=== PATIENT | male | born 1985 | race African-American/Black ===

== ENCOUNTER 2018-04-26 14:26 | Emergency (ER) | payer OTHER ==
[~2018-04-26] VITALS: Ht 182.9 cm; Wt 95.0 kg
[2018-04-26 14:45] VITALS: BP 130/71
== END 2018-04-26 17:25 | disposition left against medical advice (07) ==
LOC: ER 14:26
DX: M79.672 Pain in left foot (principal); Z53.21 Procedure and treatment not carried out due to patient leaving prior to being seen by health care provider

== ENCOUNTER 2018-04-27 09:57 | Emergency (ER) | payer SELFPAY ==
[~2018-04-27] VITALS: Ht 185.4 cm; Wt 95.0 kg
[2018-04-27] MEDS ORDERED: IBUPROFEN 600MG TABLET PO ONE (10:45)
[2018-04-27 12:16] VITALS: BP 110/51
== END 2018-04-27 12:19 | disposition home or self-care (01) ==
LOC: ER 09:57
DX: M20.11 Hallux valgus (acquired), right foot (principal); M79.674 Pain in right toe(s); M25.562 Pain in left knee; M21.611 Bunion of right foot; Z98.890 Other specified postprocedural states
CPT/HCPCS: 73630; 99284

== ENCOUNTER 2018-10-07 12:14 | Emergency (ER) | payer MEDICAID | END 2018-10-07 15:24 | disposition left against medical advice (07) | LOC: ER 12:29 | DX: M54.5 Low back pain (principal); Z53.21 Procedure and treatment not carried out due to patient leaving prior to being seen by health care provider ==